=== PATIENT | male | born 1985 | race African-American/Black ===

== ENCOUNTER 2017-11-01 23:26 | Inpatient (IN) | payer SELFPAY ==
[~2017-11-01] VITALS: Ht 175.2 cm; Wt 98.5 kg
[~2017-11-01 23:26] MED LIST: AMOXICILLIN500 MG PO; VICODIN 5/500 505 MG PO
[2017-11-01 23:27] VITALS: BP 112/63
[2017-11-02 00:26] LABS: BASO # 0.1 10*3/uL (0.0-0.1); BASO % 0.4 % (0.0-1.0); EOS # 0.1 10*3/uL (0.0-0.4); EOS % 0.8 % (1.0-4.0); HEMATOCRIT 47.7 % (42.0-52.0); LYMPH # 2.3 10*3/uL (1.3-4.4); LYMPH % 17.7 % (27.0-41.0); MEAN CELL VOLUME 86.3 fl (80.0-94.0); MEAN CORPUSCULAR HGB 28.9 pg (27.0-31.0); MEAN CORPUSCULAR HGB CONC 33.5 g/dl (33.0-37.0); MEAN PLATELET VOLUME 9.6 fl (9.6-12.3); MONO # 0.6 10*3/uL (0.1-1.0); MONO % 4.8 % (3.0-9.0); NEUT # 9.8 10*3/uL (2.3-7.9); PLATELET COUNT AUTOMATED 237 10*3/uL (130-400); RED BLOOD COUNT 5.53 10*6/uL (4.50-5.90); RED CELL DISTRI WIDTH 13.8 % (0-14.5); WHITE BLOOD COUNT 12.9 10*3/uL (4.8-10.8)
[2017-11-02 00:30] VITALS: BP 106/68
[2017-11-02 00:37] LABS: INTERNATIONAL NORM RATIO 1.1 (2.0-3.5)
[2017-11-02 00:41] LABS: ALBUMIN 3.5 gm/dl (3.1-4.5); ALKALINE PHOSPHATASE 89 U/L (45-117); BUN 6 mg/dl (7-24); CHLORIDE 102 mmol/L (98-107); CREATININE 0.95 mg/dL (0.70-1.30); LIPASE 104 U/L (73-393); POTASSIUM 3.5 mmol/L (3.5-5.1); SGOT/AST 64 IU/L (3-35); SGPT/ALT 84 U/L (12-78); SODIUM 136 mmol/L (136-145); TOTAL PROTEIN 7.5 gm/dL (6.4-8.2)
[2017-11-02 00:42] LABS: ACETAMINOPHEN (TYLENOL) < 2.0 ug/ml (10-30)
[2017-11-02 00:47] LABS: BILIRUBIN NEGATIVE (NEGATIVE); BLOOD NEGATIVE (NEGATIVE); CLARITY CLEAR (CLEAR); COLOR YELLOW (YELLOW); GLUCOSE NEGATIVE (NEGATIVE); KETONE NEGATIVE (NEGATIVE); LEUKO ESTERASE NEGATIVE (NEGATIVE); NITRITE NEGATIVE (NEGATIVE); PH 5.5 (5.0-9.0); UROBILINOGEN 0.2 E.U./dl (0.2-1.0)
[2017-11-02 00:58] LABS: URINE AMPHETAMINES < 1000 (1000ng/ml); URINE BARBITURATES < 200 (200ng/ml); URINE BENZODIAZEPINES < 200 (200ng/ml); URINE CANNABINOIDS (THC) < 50 (50ng/ml); URINE COCAINE > 300 (300ng/ml); URINE METHADONE < 300 (300ng/ml); URINE OPIATES < 300 (300ng/ml); URINE PHENCYCLIDINE < 25 (25ng/ml)
[2017-11-02 01:00] VITALS: BP 101/62
[2017-11-02 01:30] VITALS: BP 103/65
[2017-11-02 02:20] VITALS: BP 120/78
[2017-11-02 04:00] VITALS: BP 112/65
[2017-11-02 05:45] LABS: BASO % 0.1 % (0.0-1.0); EOS % 0.1 % (1.0-4.0); HEMATOCRIT 48.2 % (42.0-52.0); LYMPH # 1.9 10*3/uL (1.3-4.4); MEAN CELL VOLUME 86.5 fl (80.0-94.0); MEAN CORPUSCULAR HGB 28.7 pg (27.0-31.0); MEAN CORPUSCULAR HGB CONC 33.2 g/dl (33.0-37.0); MEAN PLATELET VOLUME 9.8 fl (9.6-12.3); MONO # 0.3 10*3/uL (0.1-1.0); MONO % 2.9 % (3.0-9.0); NEUT # 8.8 10*3/uL (2.3-7.9); NEUT % 79.5 % (47.0-73.0); PLATELET COUNT AUTOMATED 228 10*3/uL (130-400); RED BLOOD COUNT 5.57 10*6/uL (4.50-5.90)
[2017-11-02 05:48] LABS: ALBUMIN 3.4 gm/dl (3.1-4.5); ALKALINE PHOSPHATASE 85 U/L (45-117); BUN 6 mg/dl (7-24); CHLORIDE 105 mmol/L (98-107); CREATININE 0.95 mg/dL (0.70-1.30); PHOSPHOROUS 3.8 mg/dL (2.5-4.9); SGOT/AST 75 IU/L (3-35); SGPT/ALT 101 U/L (12-78); SODIUM 140 mmol/L (136-145); TOTAL PROTEIN 7.5 gm/dL (6.4-8.2)
[2017-11-02 05:57] LABS: ACT PARTIAL THROMBO TIME 23.5 SECONDS (20.8-31.5); INTERNATIONAL NORM RATIO 1.1 (2.0-3.5)
[2017-11-02 08:00] VITALS: BP 94/59
== END 2017-11-02 10:16 | DRG 896 ==
LOC: ED 23:26 → EDHOLD 11-02 01:39 → ICCU 11-02 01:58
PROVIDERS: Emergency Medicine Emergency Medical Services; Internal Medicine
DX: F10.929 Alcohol use, unspecified with intoxication, unspecified (principal); R65.11 Systemic inflammatory response syndrome (SIRS) of non-infectious origin with acute organ dysfunction; F14.90 Cocaine use, unspecified, uncomplicated; I95.9 Hypotension, unspecified; S02.101A Fracture of base of skull, right side, initial encounter for closed fracture; E83.51 Hypocalcemia; E83.41 Hypermagnesemia; S02.31XA Fracture of orbital floor, right side, initial encounter for closed fracture; S02.401A Maxillary fracture, unspecified side, initial encounter for closed fracture; S02.40EA Zygomatic fracture, right side, initial encounter for closed fracture; E66.3 Overweight; Y09 Assault by unspecified means; R73.9 Hyperglycemia, unspecified; R74.0 Nonspecific elevation of levels of transaminase and lactic acid dehydrogenase [LDH]; Z71.6 Tobacco abuse counseling; Z78.9 Other specified health status; X58.XXXA Exposure to other specified factors, initial encounter; Y93.89 Activity, other specified; Y92.89 Other specified places as the place of occurrence of the external cause; Y99.8 Other external cause status

== ENCOUNTER 2022-10-20 23:27 | Emergency (ER) | payer SELFPAY ==
[~2022-10-20] VITALS: Ht 170.1 cm; Wt 102.1 kg
[2022-10-21] MEDS ORDERED: IBU600 M1 PO (00:33)
[2022-10-21] MEDS ORDERED: PENICILLIN VK500 MG PO (00:33)
== END 2022-10-21 00:49 | disposition home or self-care (01) ==
LOC: ED 23:27
DX: K02.9 Dental caries, unspecified (principal); K08.89 Other specified disorders of teeth and supporting structures; R73.9 Hyperglycemia, unspecified; E83.41 Hypermagnesemia; I95.9 Hypotension, unspecified; D72.829 Elevated white blood cell count, unspecified; F17.200 Nicotine dependence, unspecified, uncomplicated; F14.90 Cocaine use, unspecified, uncomplicated

== ENCOUNTER 2022-10-27 09:28 | Emergency (ER) | payer SELFPAY ==
[~2022-10-27] VITALS: Ht 172.7 cm; Wt 104.3 kg
[~2022-10-27 09:28] MED LIST changes: +IBU600 M1 PO; +PENICILLIN VK500 MG PO
[2022-10-27] MEDS ORDERED: AMOX-CLAV 875-1 EACH PO (10:46)
[2022-10-27] MEDS ORDERED: TRAMADOL HCL100 MG PO ×2 (10:48→10:54)
== END 2022-10-27 11:00 | disposition home or self-care (01) ==
LOC: ED 09:28
DX: K02.9 Dental caries, unspecified (principal); F17.200 Nicotine dependence, unspecified, uncomplicated; F10.90 Alcohol use, unspecified, uncomplicated; F14.90 Cocaine use, unspecified, uncomplicated

== ENCOUNTER 2024-08-12 03:43 | Emergency (ER) | payer OTHER ==
[~2024-08-12] VITALS: Ht 170.1 cm; Wt 106.6 kg
[~2024-08-12 03:43] MED LIST changes: +AMOX-CLAV 875-1 EACH PO; +TRAMADOL HCL100 MG PO
[2024-08-12] MEDS ORDERED: PENICILLIN VK500 MG PO (04:00)
[2024-08-12] MEDS ORDERED: PENICILLIN V POTASSIUM 500 MG TAB PO ONE (04:00)
[2024-08-12] MEDS ORDERED: Acetaminophen/Hydrocodone 5 MG/325 MG TABLET PO ONE (04:00)
[2024-08-12] MEDS ORDERED: Ondansetron Hydrochloride 4 MG TAB SL ONE (04:00)
== END 2024-08-12 04:09 | disposition home or self-care (01) ==
LOC: ED 03:43
DX: K02.9 Dental caries, unspecified (principal); F17.200 Nicotine dependence, unspecified, uncomplicated; F14.90 Cocaine use, unspecified, uncomplicated

== ENCOUNTER 2024-10-31 00:39 | Emergency (ER) | payer OTHER ==
[2024-10-31] MEDS ORDERED: MELOXICAM15 MG PO (01:29)
[2024-10-31] MEDS ORDERED: AMOX-CLAV 875-1 EACH PO (01:29)
[2024-10-31] MEDS ORDERED: BENZOCAINE 20% 11.9 GM GEL T ONE (01:30)
[2024-10-31] MEDS ORDERED: Amoxicillin/Clavulanate Pota 875 MG TAB PO ONE (01:30)
[2024-10-31] MEDS ORDERED: Lidocaine Hydrochloride 15 ML UDC PO ONE (01:30)
[2024-10-31] MEDS ORDERED: Ketorolac Tromethamine 60 MG/2 ML VIAL IM ONE (01:30)
== END 2024-10-31 01:49 | disposition home or self-care (01) ==
LOC: ED 00:39
DX: K04.7 Periapical abscess without sinus (principal); F17.210 Nicotine dependence, cigarettes, uncomplicated; K02.9 Dental caries, unspecified; Z79.899 Other long term (current) drug therapy